=== PATIENT | male | born 1935 | race African-American/Black ===

== ENCOUNTER 2023-03-15 18:58 | Inpatient (IN) | payer OTHER ==
[2023-03-15] MEDS ORDERED: methylPREDNISolone NA SUCC 125 MG/2 ML VIAL IVPUSH ONE (19:41)
[2023-03-15] MEDS ORDERED: MAGNESIUM SULF 50% (8.12 MEQ/2 ML-1 GM VIAL) IVPB ONE (19:42)
[2023-03-15] MEDS ORDERED: methylPREDNISolone NA SUCC 125 MG/2 ML VIAL ONE (20:26)
[2023-03-15] MEDS ORDERED: ALBUTEROL SO4 2.5/IPRATROPIUM 0.5 INH SOL 3 ML VIAL.NEB. NEB ONE ×2 (20:26→20:52)
[2023-03-15] MEDS ORDERED: MAGNESIUM SULFATE IN WATER 2 GM/50 ML IVPB IVPB ONE (20:26)
[2023-03-15 20:29] LABS: VENOUS BASE EXCESS 2.8 mmol/L (-2-2); VENOUS PCO2 68.7 mmHg (38-52); VENOUS PH 7.275 (7.310-7.410)
[2023-03-15 20:32] LABS: BASO % 0.5 % (0-2.0); EOS % 0.2 % (0-4.5); HEMOGLOBIN 11.5 GM/dL (11.7-16.9); LYMPH % 8.7 % (8-40); MCH 27.2 pg (25.7-33.7); MCHC 30.2 g/dl (32.0-35.9); MEAN CELL VOLUME 89.8 fl (80-96); MEAN PLT VOLUME 6.9 fl (7.5-11.1); MONO % 17.1 % (3.8-10.2); NEUT % 73.5 % (42.8-82.8); PLATELET COUNT 257 10^3/uL (134-434); RBC 4.23 M/mm3 (4.00-5.60); RDW 17.7 % (11.9-15.9); WHITE BLOOD COUNT 4.9 K/mm3 (4.0-10.0)
[2023-03-15] MEDS: ALBUTEROL SO4 2.5/IPRATROPIUM 0.5 INH SOL 3 ML VIAL.NEB. NEB SCH ×2 (20:39→20:55)
[2023-03-15 20:43] LABS: INR 1.68 (0.83-1.09); PROTHROMBIN TIME (PATIENT) 19.4 SEC (9.7-13.0)
[2023-03-15 20:46] LABS: ACTIVATED PTT 35.9 SECONDS (25.2-36.5)
[2023-03-15 21:23] LABS: POTASSIUM 5.5 mmol/L (3.5-5.1)
[2023-03-15 21:26] LABS: CALCIUM 9.7 mg/dL (8.5-10.1)
[2023-03-15 21:27] LABS: ALBUMIN 3.3 g/dl (3.4-5.0); BLOOD UREA NITROGEN 24.2 mg/dL (7-18)
[2023-03-15 21:30] LABS: CREATININE 1.1 mg/dL (0.55-1.3)
[2023-03-15 21:31] LABS: TOT PROT 7.7 g/dl (6.4-8.2)
[2023-03-15 21:32] LABS: BILIRUBIN,TOTAL 0.2 mg/dL (0.2-1)
[2023-03-15 21:35] LABS: N-TERMINAL BNP 144.8 pg/ml (5-450)
[2023-03-15 22:26] LABS: ARTERIAL BLD GAS O2 SATURATION 99.4 % (95-98); ARTERIAL BLOOD GAS BASE EXCESS 2.7 mmol/L (-2-2); ARTERIAL BLOOD GAS PO2 235.9 mmHg (80-100); ARTERIAL BLOOD GAS pH 7.327 (7.350-7.450)
[2023-03-15 22:36] LABS: ALLENS TEST POSITIVE
[2023-03-15 22:37] LABS: VENT MODE S/T; VENT RATE 14
[2023-03-16] MEDS ORDERED: MECLIZINE HCL 25 MG TABLET (FP) PO PRN (05:18)
[2023-03-16 07:57] LABS: HEMATOCRIT 38.4 % (35.4-49); HEMOGLOBIN 11.8 GM/dL (11.7-16.9); MCH 27.9 pg (25.7-33.7); MCHC 30.8 g/dl (32.0-35.9); MEAN CELL VOLUME 90.5 fl (80-96); MEAN PLT VOLUME 7.1 fl (7.5-11.1); PLATELET COUNT 250 10^3/uL (134-434); RBC 4.24 M/mm3 (4.00-5.60); RDW 17.8 % (11.9-15.9); WHITE BLOOD COUNT 5.1 K/mm3 (4.0-10.0)
[2023-03-16 08:07] LABS: POTASSIUM 5.1 mmol/L (3.5-5.1)
[2023-03-16 08:20] LABS: CALCIUM 9.6 mg/dL (8.5-10.1)
[2023-03-16 08:21] LABS: ALBUMIN 3.4 g/dl (3.4-5.0); BLOOD UREA NITROGEN 25.1 mg/dL (7-18)
[2023-03-16 08:25] LABS: BILIRUBIN,TOTAL 0.2 mg/dL (0.2-1); TOT PROT 7.9 g/dl (6.4-8.2)
[2023-03-16 09:25] LABS: ANISOCYTOSIS 0; MACROCYTOSIS 0
[2023-03-16] MEDS ORDERED: amLODIPine BESYLATE 2.5 MG TABLET (FP) ONE (09:43)
[2023-03-16] MEDS ORDERED: ASCORBIC ACID 500 MG TABLET (FP) ONE (09:43)
[2023-03-16] MEDS ORDERED: ASPIRIN COATED 81 MG TABLET.EC ONE (09:43)
[2023-03-16] MEDS ORDERED: metoPROLOL SUCCINATE 25 MG TAB.SR.24H (FP) PO ONE (09:43)
[2023-03-16] MEDS ORDERED: APIXABAN 2.5 MG TABLET ONE (09:43)
[2023-03-16] MEDS ORDERED: methylPREDNISolone NA SUCC 40 MG/1 ML VIAL ONE ×2 (09:44→15:24)
[2023-03-16] MEDS ORDERED: LIDOCAINE 4% PATCH TP ONE (09:44)
[2023-03-16] MEDS ORDERED: FERROUS SO4 325 MG TABLET (FP) ONE (09:44)
[2023-03-16] MEDS ORDERED: TAMSULOSIN HCL 0.4 MG CAP ONE (09:44)
[2023-03-16] MEDS ORDERED: OSELTAMIVIR PHOSPHATE 75 MG CAPSULE PO ONE (09:45)
[2023-03-16] MEDS: TAMSULOSIN HCL 0.4 MG CAP PO SCH (09:46)
[2023-03-16] MEDS: methylPREDNISolone NA SUCC 40 MG/1 ML VIAL IVPUSH SCH ×3 (09:46→20:38)
[2023-03-16] MEDS: FERROUS SO4 325 MG TABLET (FP) PO SCH (09:47)
[2023-03-16] MEDS: metoPROLOL SUCCINATE 25 MG TAB.SR.24H (FP) PO SCH (09:47)
[2023-03-16] MEDS: amLODIPine BESYLATE 2.5 MG TABLET (FP) PO SCH (09:47)
[2023-03-16] MEDS: APIXABAN 2.5 MG TABLET PO SCH ×2 (09:47→22:31)
[2023-03-16] MEDS: ASPIRIN COATED 81 MG TABLET.EC PO SCH (09:47)
[2023-03-16] MEDS: LIDOCAINE 4% PATCH TP SCH (09:47)
[2023-03-16] MEDS: ASCORBIC ACID 500 MG TABLET (FP) PO SCH ×2 (09:48→22:32)
[2023-03-16] MEDS ORDERED: PANTOPRAZOLE 40 MG TABLET PO ONE (09:54)
[2023-03-16] MEDS: PANTOPRAZOLE 40 MG TABLET PO SCH (10:08)
[2023-03-16] MEDS ORDERED: OSELTAMIVIR PHOSPHATE 75 MG CAPSULE ONE (10:10)
[2023-03-16] MEDS ORDERED: AZITHROMYCIN IVPB 500 MG/250 ML BAG IVPB ONE (10:10)
[2023-03-16] MEDS: AZITHROMYCIN IVPB 500 MG in DEXTROSE 5%-WATER - 250 ML IVPB SCH (10:10)
[2023-03-16] MEDS: FINASTERIDE 5 MG TABLET (FP) PO SCH (12:03)
[2023-03-16 15:57] VITALS: BMI 17.6
[2023-03-16] MEDS: traMADol HCL 50 MG TABLET PO PRN (17:33)
[2023-03-16] MEDS ORDERED: traMADol HCL 50 MG TABLET ONE (17:34)
[2023-03-16] MEDS: ALBUTEROL SO4 2.5/IPRATROPIUM 0.5 INH SOL 3 ML VIAL.NEB. NEB SCH (21:30)
[2023-03-16] MEDS: OSELTAMIVIR PHOSPHATE 30 MG CAPSULE PO SCH (22:31)
[2023-03-16] MEDS: LIDOCAINE PATCH REMOVAL MC SCH (22:32)
[2023-03-16] MEDS: ATORVASTATIN CA 20 MG TABLET (FP) PO SCH (22:32)
[2023-03-17] MEDS: methylPREDNISolone NA SUCC 40 MG/1 ML VIAL IVPUSH SCH ×4 (02:27→22:36)
[2023-03-17] MEDS: ALBUTEROL SO4 2.5/IPRATROPIUM 0.5 INH SOL 3 ML VIAL.NEB. NEB SCH ×3 (07:45→20:02)
[2023-03-17] MEDS: TAMSULOSIN HCL 0.4 MG CAP PO SCH (11:26)
[2023-03-17] MEDS: LIDOCAINE 4% PATCH TP SCH (11:26)
[2023-03-17] MEDS: amLODIPine BESYLATE 2.5 MG TABLET (FP) PO SCH (11:27)
[2023-03-17] MEDS: OSELTAMIVIR PHOSPHATE 30 MG CAPSULE PO SCH ×2 (11:27→22:41)
[2023-03-17] MEDS: FINASTERIDE 5 MG TABLET (FP) PO SCH (11:27)
[2023-03-17] MEDS: PANTOPRAZOLE 40 MG TABLET PO SCH (11:27)
[2023-03-17] MEDS: metoPROLOL SUCCINATE 25 MG TAB.SR.24H (FP) PO SCH (11:27)
[2023-03-17] MEDS: APIXABAN 2.5 MG TABLET PO SCH ×2 (11:27→22:38)
[2023-03-17] MEDS: ASCORBIC ACID 500 MG TABLET (FP) PO SCH ×2 (11:28→22:41)
[2023-03-17] MEDS: FERROUS SO4 325 MG TABLET (FP) PO SCH (11:28)
[2023-03-17] MEDS: ASPIRIN COATED 81 MG TABLET.EC PO SCH (11:28)
[2023-03-17] MEDS: AZITHROMYCIN IVPB 500 MG in DEXTROSE 5%-WATER - 250 ML IVPB SCH (11:30)
[2023-03-17] MEDS: traMADol HCL 50 MG TABLET PO PRN (13:38)
[2023-03-17] MEDS: ALBUTEROL SO4 HFA INHALER IH PRN (13:38)
[2023-03-17] MEDS: guaiFENesin 200 MG/10 ML 10 ML UNIT-DOSE CUPS PO PRN (13:38)
[2023-03-17] MEDS: ATORVASTATIN CA 20 MG TABLET (FP) PO SCH (22:37)
[2023-03-17] MEDS: ACETAMINOPHEN 325 MG TABLET (FP) PO PRN (22:37)
[2023-03-17] MEDS: LIDOCAINE PATCH REMOVAL MC SCH (22:51)
[2023-03-18] MEDS: methylPREDNISolone NA SUCC 40 MG/1 ML VIAL IVPUSH SCH ×4 (02:21→22:06)
[2023-03-18] MEDS: guaiFENesin 200 MG/10 ML 10 ML UNIT-DOSE CUPS PO PRN ×2 (02:21→13:01)
[2023-03-18] MEDS: ALBUTEROL SO4 2.5/IPRATROPIUM 0.5 INH SOL 3 ML VIAL.NEB. NEB SCH ×3 (07:10→21:02)
[2023-03-18] MEDS: FERROUS SO4 325 MG TABLET (FP) PO SCH (11:54)
[2023-03-18] MEDS: TAMSULOSIN HCL 0.4 MG CAP PO SCH (11:54)
[2023-03-18] MEDS: ASPIRIN COATED 81 MG TABLET.EC PO SCH (11:54)
[2023-03-18] MEDS: ASCORBIC ACID 500 MG TABLET (FP) PO SCH ×2 (11:55→22:06)
[2023-03-18] MEDS: AZITHROMYCIN IVPB 500 MG/250 ML BAG IVPB SCH (11:55)
[2023-03-18] MEDS: LIDOCAINE 4% PATCH TP SCH (11:55)
[2023-03-18] MEDS: PANTOPRAZOLE 40 MG TABLET PO SCH (11:55)
[2023-03-18] MEDS: FINASTERIDE 5 MG TABLET (FP) PO SCH (11:55)
[2023-03-18] MEDS: APIXABAN 2.5 MG TABLET PO SCH ×2 (11:55→22:06)
[2023-03-18] MEDS: amLODIPine BESYLATE 2.5 MG TABLET (FP) PO SCH (12:20)
[2023-03-18] MEDS: metoPROLOL SUCCINATE 25 MG TAB.SR.24H (FP) PO SCH (12:20)
[2023-03-18] MEDS: OSELTAMIVIR PHOSPHATE 30 MG CAPSULE PO SCH ×2 (13:01→22:06)
[2023-03-18] MEDS: BENZOCAINE 20% UNIT DOSE SPRAY MM SCH ×2 (14:24→22:41)
[2023-03-18] MEDS: ATORVASTATIN CA 20 MG TABLET (FP) PO SCH (22:06)
[2023-03-18] MEDS: ALBUTEROL SO4 HFA INHALER IH PRN (22:06)
[2023-03-18] MEDS: LIDOCAINE PATCH REMOVAL MC SCH (22:50)
[2023-03-19] MEDS: guaiFENesin 200 MG/10 ML 10 ML UNIT-DOSE CUPS PO PRN ×2 (02:57→09:53)
[2023-03-19] MEDS: methylPREDNISolone NA SUCC 40 MG/1 ML VIAL IVPUSH SCH ×4 (02:57→21:18)
[2023-03-19] MEDS: ALBUTEROL SO4 2.5/IPRATROPIUM 0.5 INH SOL 3 ML VIAL.NEB. NEB SCH ×3 (07:15→20:03)
[2023-03-19] MEDS: APIXABAN 2.5 MG TABLET PO SCH ×2 (09:53→21:18)
[2023-03-19] MEDS: ASPIRIN COATED 81 MG TABLET.EC PO SCH (09:53)
[2023-03-19] MEDS: LIDOCAINE 4% PATCH TP SCH (09:53)
[2023-03-19] MEDS: TAMSULOSIN HCL 0.4 MG CAP PO SCH (09:53)
[2023-03-19] MEDS: PANTOPRAZOLE 40 MG TABLET PO SCH (09:53)
[2023-03-19] MEDS: AZITHROMYCIN IVPB 500 MG/250 ML BAG IVPB SCH (09:53)
[2023-03-19] MEDS: FERROUS SO4 325 MG TABLET (FP) PO SCH (09:53)
[2023-03-19] MEDS: FINASTERIDE 5 MG TABLET (FP) PO SCH (09:53)
[2023-03-19] MEDS: ASCORBIC ACID 500 MG TABLET (FP) PO SCH ×2 (09:53→21:18)
[2023-03-19] MEDS: BENZOCAINE 20% UNIT DOSE SPRAY MM SCH ×2 (09:54→21:20)
[2023-03-19] MEDS: metoPROLOL SUCCINATE 25 MG TAB.SR.24H (FP) PO SCH (09:55)
[2023-03-19] MEDS: amLODIPine BESYLATE 2.5 MG TABLET (FP) PO SCH (09:55)
[2023-03-19] MEDS: OSELTAMIVIR PHOSPHATE 30 MG CAPSULE PO SCH ×2 (12:32→21:18)
[2023-03-19] MEDS ORDERED: SODIUM CHLORIDE NASAL SPRAY 44 ML BOTTLE NS PRN (20:42)
[2023-03-19] MEDS: ATORVASTATIN CA 20 MG TABLET (FP) PO SCH (21:18)
[2023-03-19] MEDS: LORATADINE 10 MG TABLET PO SCH (21:18)
[2023-03-19] MEDS: ALBUTEROL SO4 HFA INHALER IH PRN (21:18)
[2023-03-19] MEDS: LIDOCAINE PATCH REMOVAL MC SCH (21:21)
[2023-03-20] MEDS: methylPREDNISolone NA SUCC 40 MG/1 ML VIAL IVPUSH SCH ×3 (02:51→22:42)
[2023-03-20] MEDS: ALBUTEROL SO4 2.5/IPRATROPIUM 0.5 INH SOL 3 ML VIAL.NEB. NEB SCH ×3 (08:05→20:52)
[2023-03-20] MEDS: OSELTAMIVIR PHOSPHATE 30 MG CAPSULE PO SCH ×2 (10:01→22:46)
[2023-03-20] MEDS: metoPROLOL SUCCINATE 25 MG TAB.SR.24H (FP) PO SCH (10:01)
[2023-03-20] MEDS: LIDOCAINE 4% PATCH TP SCH (10:01)
[2023-03-20] MEDS: ASCORBIC ACID 500 MG TABLET (FP) PO SCH ×2 (10:02→22:39)
[2023-03-20] MEDS: PANTOPRAZOLE 40 MG TABLET PO SCH (10:02)
[2023-03-20] MEDS: FINASTERIDE 5 MG TABLET (FP) PO SCH (10:02)
[2023-03-20] MEDS: ASPIRIN COATED 81 MG TABLET.EC PO SCH (10:02)
[2023-03-20] MEDS: FERROUS SO4 325 MG TABLET (FP) PO SCH (10:02)
[2023-03-20] MEDS: LORATADINE 10 MG TABLET PO SCH (10:02)
[2023-03-20] MEDS: amLODIPine BESYLATE 2.5 MG TABLET (FP) PO SCH (10:02)
[2023-03-20] MEDS: AZITHROMYCIN IVPB 500 MG/250 ML BAG IVPB SCH (10:04)
[2023-03-20] MEDS: APIXABAN 2.5 MG TABLET PO SCH ×2 (10:06→22:38)
[2023-03-20] MEDS: TAMSULOSIN HCL 0.4 MG CAP PO SCH (10:06)
[2023-03-20] MEDS: BENZOCAINE 20% UNIT DOSE SPRAY MM SCH ×2 (10:12→22:40)
[2023-03-20] MEDS: ATORVASTATIN CA 20 MG TABLET (FP) PO SCH (22:39)
[2023-03-20] MEDS: LIDOCAINE PATCH REMOVAL MC SCH (22:56)
[2023-03-21] MEDS: ALBUTEROL SO4 2.5/IPRATROPIUM 0.5 INH SOL 3 ML VIAL.NEB. NEB SCH ×2 (08:32→15:50)
[2023-03-21 09:31] LABS: HEMATOCRIT 38.5 % (35.4-49); HEMOGLOBIN 12.1 GM/dL (11.7-16.9); MCH 28.2 pg (25.7-33.7); MCHC 31.4 g/dl (32.0-35.9); MEAN CELL VOLUME 89.7 fl (80-96); MEAN PLT VOLUME 7.2 fl (7.5-11.1); PLATELET COUNT 289 10^3/uL (134-434); RBC 4.29 M/mm3 (4.00-5.60); RDW 17.5 % (11.9-15.9); WHITE BLOOD COUNT 10.9 K/mm3 (4.0-10.0)
[2023-03-21 09:50] LABS: CALCIUM 8.6 mg/dL (8.5-10.1)
[2023-03-21 09:51] LABS: BLOOD UREA NITROGEN 33.2 mg/dL (7-18)
[2023-03-21 09:53] LABS: CREATININE 1.1 mg/dL (0.55-1.3)
[2023-03-21 09:55] LABS: BILIRUBIN,TOTAL 0.2 mg/dL (0.2-1); TOT PROT 6.3 g/dl (6.4-8.2)
[2023-03-21] MEDS: FINASTERIDE 5 MG TABLET (FP) PO SCH (09:56)
[2023-03-21] MEDS: amLODIPine BESYLATE 2.5 MG TABLET (FP) PO SCH (09:56)
[2023-03-21] MEDS: methylPREDNISolone NA SUCC 40 MG/1 ML VIAL IVPUSH SCH ×2 (09:56→22:26)
[2023-03-21] MEDS: FERROUS SO4 325 MG TABLET (FP) PO SCH (09:56)
[2023-03-21] MEDS: LIDOCAINE 4% PATCH TP SCH (09:56)
[2023-03-21 09:57] LABS: ALBUMIN 2.6 g/dl (3.4-5.0)
[2023-03-21] MEDS: PANTOPRAZOLE 40 MG TABLET PO SCH (09:57)
[2023-03-21] MEDS: APIXABAN 2.5 MG TABLET PO SCH ×2 (09:57→22:26)
[2023-03-21] MEDS: TAMSULOSIN HCL 0.4 MG CAP PO SCH (09:57)
[2023-03-21] MEDS: ASCORBIC ACID 500 MG TABLET (FP) PO SCH ×2 (09:57→22:26)
[2023-03-21] MEDS: ASPIRIN COATED 81 MG TABLET.EC PO SCH (09:57)
[2023-03-21] MEDS: metoPROLOL SUCCINATE 25 MG TAB.SR.24H (FP) PO SCH (09:57)
[2023-03-21] MEDS: LORATADINE 10 MG TABLET PO SCH (09:57)
[2023-03-21] MEDS: OSELTAMIVIR PHOSPHATE 30 MG CAPSULE PO SCH (10:00)
[2023-03-21] MEDS: BENZOCAINE 20% UNIT DOSE SPRAY MM SCH ×2 (10:01→22:29)
[2023-03-21 10:54] LABS: ANISOCYTOSIS 1+; MACROCYTOSIS 0
[2023-03-21] MEDS: FLUTICASONE PROP 0.05% 16 GM NASAL SPRAY NS SCH (15:04)
[2023-03-21] MEDS: ATORVASTATIN CA 20 MG TABLET (FP) PO SCH (22:25)
[2023-03-21] MEDS: LIDOCAINE PATCH REMOVAL MC SCH (22:26)
[2023-03-22] MEDS: FINASTERIDE 5 MG TABLET (FP) PO SCH (09:31)
[2023-03-22] MEDS: ASPIRIN COATED 81 MG TABLET.EC PO SCH (09:31)
[2023-03-22] MEDS: metoPROLOL SUCCINATE 25 MG TAB.SR.24H (FP) PO SCH (09:31)
[2023-03-22] MEDS: guaiFENesin 200 MG/10 ML 10 ML UNIT-DOSE CUPS PO PRN (09:31)
[2023-03-22] MEDS: FERROUS SO4 325 MG TABLET (FP) PO SCH (09:31)
[2023-03-22] MEDS: LORATADINE 10 MG TABLET PO SCH (09:31)
[2023-03-22] MEDS: APIXABAN 2.5 MG TABLET PO SCH ×2 (09:31→22:04)
[2023-03-22] MEDS: ASCORBIC ACID 500 MG TABLET (FP) PO SCH ×2 (09:31→22:04)
[2023-03-22] MEDS: methylPREDNISolone NA SUCC 40 MG/1 ML VIAL IVPUSH SCH (09:32)
[2023-03-22] MEDS: amLODIPine BESYLATE 2.5 MG TABLET (FP) PO SCH (09:32)
[2023-03-22] MEDS: LIDOCAINE 4% PATCH TP SCH (09:32)
[2023-03-22] MEDS: PANTOPRAZOLE 40 MG TABLET PO SCH (09:32)
[2023-03-22] MEDS: TAMSULOSIN HCL 0.4 MG CAP PO SCH (09:32)
[2023-03-22] MEDS: FLUTICASONE PROP 0.05% 16 GM NASAL SPRAY NS SCH (09:33)
[2023-03-22] MEDS: BENZOCAINE 20% UNIT DOSE SPRAY MM SCH (09:34)
[2023-03-22] MEDS: PHENOL 177 ML SPRAY BOTTLE MM SCH ×2 (11:28→22:01)
[2023-03-22 13:10] VITALS: RESP 18
[2023-03-22] MEDS: ACETAMINOPHEN 325 MG TABLET (FP) PO PRN (22:03)
[2023-03-22] MEDS: LIDOCAINE PATCH REMOVAL MC SCH (22:04)
[2023-03-22] MEDS: ATORVASTATIN CA 20 MG TABLET (FP) PO SCH (22:04)
[2023-03-23] MEDS: LIDOCAINE 4% PATCH TP SCH (09:59)
[2023-03-23] MEDS: ASPIRIN COATED 81 MG TABLET.EC PO SCH (09:59)
[2023-03-23] MEDS: FERROUS SO4 325 MG TABLET (FP) PO SCH (09:59)
[2023-03-23] MEDS: FINASTERIDE 5 MG TABLET (FP) PO SCH (09:59)
[2023-03-23] MEDS: amLODIPine BESYLATE 2.5 MG TABLET (FP) PO SCH (09:59)
[2023-03-23] MEDS: PANTOPRAZOLE 40 MG TABLET PO SCH (09:59)
[2023-03-23] MEDS: TAMSULOSIN HCL 0.4 MG CAP PO SCH (09:59)
[2023-03-23] MEDS: LORATADINE 10 MG TABLET PO SCH (09:59)
[2023-03-23] MEDS: metoPROLOL SUCCINATE 25 MG TAB.SR.24H (FP) PO SCH (09:59)
[2023-03-23] MEDS: ASCORBIC ACID 500 MG TABLET (FP) PO SCH (09:59)
[2023-03-23] MEDS: APIXABAN 2.5 MG TABLET PO SCH (09:59)
[2023-03-23] MEDS: PHENOL 177 ML SPRAY BOTTLE MM SCH (10:00)
[2023-03-23] MEDS ORDERED: methylPREDNISolone NA SUCC 40 MG/1 ML VIAL IVPUSH SCH (10:00)
[2023-03-23] MEDS: FLUTICASONE PROP 0.05% 16 GM NASAL SPRAY NS SCH (10:00)
[2023-03-23] MEDS: ALBUTEROL SO4 HFA INHALER IH PRN (10:01)
[2023-03-23 10:04] VITALS: TEMP 98
[2023-03-23] MEDS ORDERED: NYSTATIN 500,000 UNITS/5 ML SUSPENSION PO SCH (12:00)
[2023-03-23 13:46] VITALS: BP 136/68; PULSE 86
== END 2023-03-23 14:06 | DRG 193 ==
LOC: JER 18:58 → JERBED 03-16 02:46 → J8W 03-16 18:57
PROVIDERS: ADMIT Internal Medicine; ATTEND Internal Medicine
DX: J10.1 Influenza due to other identified influenza virus with other respiratory manifestations (principal); J96.01 Acute respiratory failure with hypoxia; J96.02 Acute respiratory failure with hypercapnia; J44.1 Chronic obstructive pulmonary disease with (acute) exacerbation; E46 Unspecified protein-calorie malnutrition; Z68.1 Body mass index [BMI] 19.9 or less, adult; I25.10 Atherosclerotic heart disease of native coronary artery without angina pectoris; I48.91 Unspecified atrial fibrillation; N40.0 Benign prostatic hyperplasia without lower urinary tract symptoms; K21.9 Gastro-esophageal reflux disease without esophagitis; I10 Essential (primary) hypertension; E78.5 Hyperlipidemia, unspecified; B97.4 Respiratory syncytial virus as the cause of diseases classified elsewhere; R07.89 Other chest pain
CPT/HCPCS: 0241U-QW; 36415; 36600; 71045-TC-FY; 71275-TC; 74174-TC; 80053; 82803; 83605; 83690; 83735; 83880; 84484; 85025; 85610; 85730; 86850; 86900; 86901; 87635; 93005; 93010; 94640; 97116-GP; 97161-GP; 99291; Q9967